=== PATIENT | female | born 1970 ===

== ENCOUNTER 2023-07-05 13:17 | Outpatient (CLI) | payer MEDICAID ==
--- NOTE | 2023-07-06 12:09 | Ultrasound Report ---
PROCEDURE: Retroperitoneal INDICATIONS: CKD TECHNIQUE: Real-time scanning was performed of the retroperitoneal organs, with image documentation. COMPARISON: None. FINDINGS: Kidneys: Kidneys are normal in size. Right kidney measures 9.5 cm long; left kidney measures 9.7 cm long. Right renal cortical thickness is 1.3 cm; left renal cortical thickness is 1.5 cm. There is e chogenic renal cortices bilaterally. There is a 0.6 cm echogenic nodule in the superolateral aspect o f the left kidney. No hydronephrosis, or nephrolithiasis. Bladder: Pre-void bladder volume is 283 mL. Post-void residual is 0 mL. Pre-void images demonstrat e no intraluminal masses or stones. On pre-void images, both ureteral jets are noted with color Dopp ler interrogation. (Of note, ureteral jets may not be detectable in up to 25% of cases due to insuff icient differences in specific gravity between ureteral and bladder urine). Miscellaneous: No free abdominal fluid. IMPRESSION: 1. Echogenic renal cortical echotexture suggesting medical renal disease. 2. 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 3. No renal stones or hydronephrosis. Reviewed by: Ute Meredith MD on 07/06/2023 12:08 PM PDT Approved by: Ute Meredith MD on 07/06/2023 12:08 PM PDT Station ID: [id number]
== END 2023-07-05 13:18 | disposition home or self-care (01) ==
LOC: DI 13:17
PROVIDERS: ATTEND Internal Medicine Nephrology
DX: N18.31 Chronic kidney disease, stage 3a (principal); N28.89 Other specified disorders of kidney and ureter

== ENCOUNTER 2023-07-05 13:21 | Emergency (ER) | payer MEDICAID ==
[2023-07-05 13:34] VITALS: BP 211/91; O2SAT 97
--- NOTE | 2023-07-05 13:48 | ED Physician Documentation ---
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 She has a running suture in place, she is here for a renal ultrasound today she was thought she would come here to have the wound checked to see if it was ready for suture removal. No fevers. No chills. There is still some drainage from the wound. Review of Systems Constitutional: denies: Fever, Chills GI: denies: Vomiting, Diarrhea PD PAST MEDICAL HISTORY - Past Medical History Past Medical History: No Cardiovascular: Hypertension, High cholesterol - Past Surgical History Other past surgical history: Melanoma resection - Present Medications Home Medications: Ambulatory Orders Medication Instructions Recorded Confirmed Atorvastatin [Lipitor] 10 mg ORAL DAILY 07/05/23 07/05/23 lisinopriL [Zestril] 5 mg PO DAILY 07/05/23 07/05/23 metFORMIN [Glucophage] 500 mg PO BIDWM 07/05/23 07/05/23 - Allergies Allergies/Adverse Reactions: Allergies Allergy/AdvReac Type Severity Reaction Status Date / Time No Known Drug Allergies Allergy Verified 07/05/23 13:31 - Living Situation Living Situation: reports: With family Living Arrangement: reports: At home - Social History Does the pt have substance abuse?: No - Family History Family history: reports: Non contributory PD ED PE NORMAL - Vitals Vital signs reviewed: Yes - General General: Alert and oriented X 3 - HEENT HEENT: Moist mucous membranes - Derm Derm: Warm and dry - Neuro Neuro: Alert and oriented X 3 - Free text exam Free text exam: There is an approximately 7 cm incision to the left upper back with a running suture in place. There is still swelling to the wound, there is slight serous drainage still and there appears to be areas of incomplete healing. Results - Vitals Vitals: Vital Signs - 24 hr 07/05/23 13:26 Temperature 36 C L Heart Rate 85 Respiratory 16 Rate Blood Pressure 211/91 H O2 Saturation 97 Oxygen O2 Source Room air PD Medical Decision Making - ED course Complexity details: considered differential, d/w patient ED course: Her wound does not appear infected today, but does not appear fully healed and ready to have the suture removed. It is a running suture, therefore concerned that if it is not fully healed that the wound may dehisce and require resuturing. We will have the patient follow-up with the walk-in clinic in 2 to 3 days for suture removal. Patient counseled regarding signs and symptoms for which I believe and urgent re-evaluation would be necessary. Patient with good understanding of and agreement to plan and is comfortable going home at this time This document was made in part using voice recognition software. While efforts are made to proofread this document, sound alike and grammatical errors may occur. Departure - Departure Disposition: 01 Home, Self Care Clinical Impression: Visit for wound check Condition: Good Instructions: ED Sutr Check No Infec Follow-Up: Walter Driscoll [Primary Care Provider] - Comments: I would recommend leaving the sutures in place for another 2 to 3 days to ensure that the wound is fully healed before the running stitch is removed. Otherwise we run the risk of the wound opening and having to resuture you. Please follow-up with your doctor for further care. Return if you worsen. Forms: PCP List Discharge Date/Time: 07/05/23 13:50
== END 2023-07-05 13:50 | disposition home or self-care (01) ==
LOC: ED 13:21
DX: Z48.02 Encounter for removal of sutures (principal); I10 Essential (primary) hypertension; E78.00 Pure hypercholesterolemia, unspecified; Z79.84 Long term (current) use of oral hypoglycemic drugs; Z79.899 Other long term (current) drug therapy
CPT/HCPCS: 99282

== ENCOUNTER 2023-12-06 13:00 | Outpatient (CLI) | payer MEDICAID ==
--- NOTE | 2023-12-14 09:33 | Mammography Report ---
BILATERAL DIGITAL SCREENING MAMMOGRAM 3D/2D: 12/06/2023 CLINICAL: Routine screening. Family history of breast cancer. No prior exams were available for comparison. Both breasts are almost entirely fatty (category a/<25% glandular tissue). No significant masses, calcifications, or other findings are seen in either breast. IMPRESSION: NEGATIVE There is no mammographic evidence of malignancy. A 1 year screening mammogram is recommended. Based on the Tyrer Cuzick model (a risk assessment model) the patient's lifetime risk is 15.5% and he r 10 year risk is 5.1%. According to the ACR, ACS, and NCCN guidelines, an annual breast MRI exam gume ng with mammogram is recommended if the patient's lifetime risk is 20% or greater. This exam was interpreted at Station ID: [id number]. NOTE: For mammograms, a report in lay terms will be sent to the patient. Approximately 15% of breast malignancies will not be visualized mammographically. In the management of a palpable breast mass, a negative mammogram must not discourage biopsy of a clinically suspicious lesion. Electronically Signed By: Ana M woods/phuc:12/13/2023 16:56:12 ACR BI-RADS Category 1: Negative 3341F PARENCHYMAL PATTERN: (F) - The breast(s) demonstrate(s) diffuse fatty replacement. BI-RADS CATEGORY: (1) - 1 Mammogram [id number] 1 year screening LATERALITY: (B)
== END 2023-12-06 13:01 | disposition home or self-care (01) ==
LOC: DI.N 13:00
DX: Z12.31 Encounter for screening mammogram for malignant neoplasm of breast (principal); Z80.3 Family history of malignant neoplasm of breast